=== PATIENT | male | born 1945 | race African-American/Black ===

== ENCOUNTER 2019-01-10 08:44 | Outpatient (RCR) | payer MEDICARE ==
[~2019-01-10] VITALS: Ht 177.8 cm; Wt 78.9 kg
[2019-01-18] MEDS ORDERED: Lidocaine 4% Top Soln 50ml TOPIC ONE (17:15)
== END 2019-01-19 | disposition home or self-care (01) ==
LOC: WCC 08:44
DX: L97.522 Non-pressure chronic ulcer of other part of left foot with fat layer exposed (principal); E11.621 Type 2 diabetes mellitus with foot ulcer; I70.248 Atherosclerosis of native arteries of left leg with ulceration of other part of lower leg; I10 Essential (primary) hypertension; Z85.118 Personal history of other malignant neoplasm of bronchus and lung; F17.210 Nicotine dependence, cigarettes, uncomplicated; Z79.82 Long term (current) use of aspirin; Z88.8 Allergy status to other drugs, medicaments and biological substances
CPT/HCPCS: 11042; 36415; 83036

== ENCOUNTER → 2019-01-12 | Outpatient (CLI) | payer MEDICARE | END | disposition home or self-care (01) | LOC: VAS 08:37 | DX: I73.9 Peripheral vascular disease, unspecified (principal) | CPT/HCPCS: 93925 ==

== ENCOUNTER 2019-01-31 08:48 | Outpatient (RCR) | payer MEDICARE | END 2019-02-19 | disposition home or self-care (01) | LOC: WCC 08:48 | DX: L97.523 Non-pressure chronic ulcer of other part of left foot with necrosis of muscle (principal); L97.522 Non-pressure chronic ulcer of other part of left foot with fat layer exposed; E11.621 Type 2 diabetes mellitus with foot ulcer; I70.248 Atherosclerosis of native arteries of left leg with ulceration of other part of lower leg; Z95.1 Presence of aortocoronary bypass graft; Z85.118 Personal history of other malignant neoplasm of bronchus and lung; I10 Essential (primary) hypertension; Z79.82 Long term (current) use of aspirin; Z79.899 Other long term (current) drug therapy | CPT/HCPCS: 11043 ==

== ENCOUNTER 2019-02-28 08:49 | Outpatient (RCR) | payer MEDICARE ==
[~2019-02-28] VITALS: Ht 177.8 cm; Wt 66.2 kg
[2019-03-09] MEDS ORDERED: Lidocaine 4% Top Soln 50ml TOPIC ONE (08:45)
== END 2019-03-21 | disposition home or self-care (01) ==
LOC: WCC 08:49
DX: L97.523 Non-pressure chronic ulcer of other part of left foot with necrosis of muscle (principal); L97.522 Non-pressure chronic ulcer of other part of left foot with fat layer exposed; E11.621 Type 2 diabetes mellitus with foot ulcer; I70.248 Atherosclerosis of native arteries of left leg with ulceration of other part of lower leg; Z85.118 Personal history of other malignant neoplasm of bronchus and lung; I10 Essential (primary) hypertension; Z79.82 Long term (current) use of aspirin; Z79.899 Other long term (current) drug therapy
CPT/HCPCS: 11042; 11043; 15275; 82962; G0463; Q4133

== ENCOUNTER 2019-03-28 08:38 | Outpatient (RCR) | payer MEDICARE ==
[~2019-03-28] VITALS: Ht 177.8 cm; Wt 78.9 kg
== END 2019-04-21 | disposition home or self-care (01) ==
LOC: WCC 08:38
DX: L97.523 Non-pressure chronic ulcer of other part of left foot with necrosis of muscle (principal); L97.522 Non-pressure chronic ulcer of other part of left foot with fat layer exposed; E11.621 Type 2 diabetes mellitus with foot ulcer; I70.248 Atherosclerosis of native arteries of left leg with ulceration of other part of lower leg; L97.524 Non-pressure chronic ulcer of other part of left foot with necrosis of bone; I10 Essential (primary) hypertension; Z85.118 Personal history of other malignant neoplasm of bronchus and lung; Z79.82 Long term (current) use of aspirin; Z79.899 Other long term (current) drug therapy
CPT/HCPCS: 11043; 11044; 15275; 82962; Q4133

== ENCOUNTER 2019-04-25 09:08 | Outpatient (RCR) | payer MEDICARE ==
[~2019-04-25] VITALS: Ht 177.8 cm; Wt 78.9 kg
== END 2019-05-21 | disposition home or self-care (01) ==
LOC: WCC 09:08
DX: L97.523 Non-pressure chronic ulcer of other part of left foot with necrosis of muscle (principal); L97.522 Non-pressure chronic ulcer of other part of left foot with fat layer exposed; E11.621 Type 2 diabetes mellitus with foot ulcer; I70.248 Atherosclerosis of native arteries of left leg with ulceration of other part of lower leg; L97.524 Non-pressure chronic ulcer of other part of left foot with necrosis of bone; F17.210 Nicotine dependence, cigarettes, uncomplicated; Z85.118 Personal history of other malignant neoplasm of bronchus and lung; I10 Essential (primary) hypertension; E11.9 Type 2 diabetes mellitus without complications; Z79.82 Long term (current) use of aspirin; Z79.899 Other long term (current) drug therapy
CPT/HCPCS: 11043; 29445; 82962; G0463

== ENCOUNTER 2019-06-27 08:48 | Outpatient (RCR) | payer MEDICARE ==
[~2019-06-27] VITALS: Ht 177.8 cm; Wt 78.9 kg
== END 2019-07-22 | disposition home or self-care (01) ==
LOC: WCC 08:48
DX: L97.523 Non-pressure chronic ulcer of other part of left foot with necrosis of muscle (principal); L97.522 Non-pressure chronic ulcer of other part of left foot with fat layer exposed; E11.621 Type 2 diabetes mellitus with foot ulcer; I70.248 Atherosclerosis of native arteries of left leg with ulceration of other part of lower leg; L97.524 Non-pressure chronic ulcer of other part of left foot with necrosis of bone; E11.9 Type 2 diabetes mellitus without complications; I10 Essential (primary) hypertension; Z85.118 Personal history of other malignant neoplasm of bronchus and lung; Z79.899 Other long term (current) drug therapy
CPT/HCPCS: 11043; 11044; 82962; 87070; 87181; 87205

== ENCOUNTER → 2019-07-11 | Outpatient (CLI) | payer MEDICARE ==
--- NOTE | 2019-07-11 15:27 | Diagnostic Imaging Report ---
Indication: 74-year-old male diabetic presenting with open wound lateral side near the fifth toe. Technique: Left foot imaging utilizing multiplanar T1 fast spin-echo, proton and T2 fast spin-echo with fat saturation, and STIR. Comparison: None Findings: There is bone marrow edema (abnormal low T1/high T2 signal) with cortical destruction involving the head and neck of the fifth metatarsal. The destructive process has resulted in medial subluxation of the fifth phalanx. There is also involvement of the proximal fifth phalange which appears abnormal in signal as well. The appearance is in keeping with acute osteomyelitis. Plain film correlation is not available which may give supportive evidence. Soft tissue swelling noted. There is no definite abscess identified. In addition, the tip of the first distal phalange demonstrates apparent disruption of the cortex. There is also abnormal signal mostly characterized by T2 hyperintensity. There may be a small focus of T1 hypointensity at the distal phalangeal tuft. IMPRESSION: Evidence of acute osteomyelitis involving the distal fifth metatarsal and proximal phalange. Plain film correlation is suggested. Apparent focus of cortical disruption involving the first distal phalanx with some T2 hyperintense signal noted. This could be an old area of osteomyelitis. Correlate clinically.
== END | disposition home or self-care (01) ==
LOC: MRI 09:08
DX: M86.172 Other acute osteomyelitis, left ankle and foot (principal)

== ENCOUNTER 2019-07-19 10:03 | Outpatient (CLI) | payer MEDICARE ==
[~2019-07-19] VITALS: Ht 177.8 cm; Wt 70.3 kg
[~2019-07-19 10:03] MED LIST: Heparin1,000 units/500ml Premix(Conc:2 units/ml) INJ PRN; Heparin1,000 units/500ml Premix(Conc:2 units/ml) ONE; Lidocaine 1% Plain 30 ml INJ ONE; Lidocaine 1% Plain 30 ml INJ PRN
--- NOTE | 2019-07-19 10:55 | Pre-Procedure Note/Attestation ---
Pre-Procedure Note/Attestation Complete Prior to Procedure Planned Procedure: not applicable Procedure Narrative: PICC Indications for Procedure Pre-Operative Diagnosis: needs senior living antibiotics Attestation I attest that I discussed the nature of the procedure; its benefits; risks and complications; and alternatives (and the risks and benefits of such alternatives ), prior to the procedure, with the patient (or the patient's legal event marketing representative). I attest that, if there was a reasonable possibility of needing a blood transfusion, the patient (or the patient's legal event marketing representative) was given the [facility] standardized written summary, pursuant to the Ilan Emery Blood Safety Act ([place] Health and Safety Code # 1645, as amended). I attest that I re-evaluated the patient just prior to the surgery and that there has been no change in the patient's H&P, except as documented below: Wilfredo Friend MD Jul 19, 2019 10:55
--- NOTE | 2019-07-19 10:56 | Brief Operative Note ---
Immediate Post Operative Note Operative Note Pre-op Diagnosis: needs exterminator antibiotics Procedure: PICC R arm Post-op Diagnosis: same as pre-op Surgeon: Fareed Bernal Anesthesia: local Specimen: none Complications: none Condition: unstable Fluids: none Implant(s) used?: No Wilfredo Bernal MD Jul 19, 2019 10:56
--- NOTE | 2019-07-19 10:58 | NUR ---
RADIOLOGY NOTE: RIGHT UPPER EXTREMITY PICC LINE PLACEMENT BY DR. MARTHA SARGENT AT 1020 HRS. FA
--- NOTE | 2019-07-19 14:11 | Diagnostic Imaging Report ---
Indications: Needs long-term IV access Technique: Ultrasound confirms patent compressible right basilic vein. Total sterile technique, including sterile probe cover and sterile gel, hat, mask, sterile gown, large sterile drape, and preparation with 2% chlorhexidine utilized. Local anesthesia with 1% lidocaine. Under real-time ultrasound guidance, puncture this is vein using 21-gauge needle, documented and archived, passage 0.018 guidewire under direct fluoroscopy, which was used to determine appropriate catheter length, exchange for 4 Bulgarian peel-away sheath. 4 Bulgarian Bard dual-lumen power PICC cut to 48 cm. It was inserted through the peel-away sheath. Peel-away sheath and guidewire removed. Catheter fixed to the skin. Both catheter ports aspirated and flushed. Patient tolerated procedure well, without immediate complication. Digital radiograph documents satisfactory catheter tip position, at the cavoatrial junction. Total fluoroscopy time 64.2 seconds. Total dose area product [id number] Total number of images: 1 Impression: Successful placement of left arm PICC under sonographic and fluoroscopic guidance, as described above.
== END 2019-07-19 12:03 | disposition home or self-care (01) ==
LOC: RAD 10:03
DX: Z79.899 Other long term (current) drug therapy (principal)
CPT/HCPCS: 36573; 76937; J1644; J2001; 36569

== ENCOUNTER 2019-07-25 08:30 | Outpatient (RCR) | payer MEDICARE ==
--- NOTE | 2019-08-08 12:51 | Infectious Diseases Prog Note ---
Assessment/Plan Problems: (1) Osteomyelitis of foot, left, acute Assessment & Plan: due to pseudomonas aeruginosa and strep agalactia , improving on cefepime which he will receive for 6 weeks, continue local wound care and labs monitor weekly (2) Chronic foot ulcer with necrosis of muscle Assessment & Plan: improving and closing up , with no draining or pus but dry borders , continue loacal wound care and dressings as per wound care clinic (3) Diabetes mellitus Assessment & Plan: recommend tight glycemic control to keep blood glucose between 100-140 (4) PVD (peripheral vascular disease) Assessment & Plan: follow up with vascular surgery Subjective Constitutional: Reports: no symptoms HEENT: Reports: no symptoms Respiratory: Reports: no symptoms Breasts: Reports: no symptoms Cardiovascular: Reports: no symptoms Gastrointestinal/Abdominal: Reports: no symptoms Genitourinary: Reports: no symptoms Neurologic: Reports: no symptoms Psychiatric: Reports: no symptoms Skin: Reports: ulcer Endocrine: Reports: no symptoms Hematologic: Reports: no symptoms Musculoskeletal: Reports: swelling Allergies: Coded Allergies: No Known Allergies (Verified Allergy, Unknown, 01/05/07) Subjective He was feeling good, and has significant improvement in his left foot lateral wound which started closing up with drying out borders , no pain but tingling sensation, mild swelling in the toe Objective General Appearance: WD/WN, no acute distress HEENT: normocephalic, atraumatic, anicteric, mucous membranes moist, PERRL Respiratory/Chest: chest wall non-tender, lungs clear, normal breath sounds, no respiratory distress, no accessory muscle use Cardiovascular: normal peripheral pulses, normal rate, regular rhythm, no gallop/murmur, no JVD Abdomen: normal bowel sounds, soft, non tender, no organomegaly, non distended , no mass, no scars Genitourinary: normal external genitalia Extremities: no cyanosis, no clubbing, no edema Skin: no rash, no lesions, ulcers - left lateral fifth metatarsal wound dry and smaller than before with no draining or discharge 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 Aug 08, 2019 12:51
== END 2019-08-20 | disposition home or self-care (01) ==
LOC: WCC 08:30
DX: L97.523 Non-pressure chronic ulcer of other part of left foot with necrosis of muscle (principal); L97.522 Non-pressure chronic ulcer of other part of left foot with fat layer exposed; E11.621 Type 2 diabetes mellitus with foot ulcer; I70.248 Atherosclerosis of native arteries of left leg with ulceration of other part of lower leg; L97.524 Non-pressure chronic ulcer of other part of left foot with necrosis of bone
CPT/HCPCS: 11043; 11044; 82962

== ENCOUNTER 2019-08-22 08:44 | Outpatient (RCR) | payer MEDICARE | END 2019-09-20 | disposition home or self-care (01) | LOC: WCC 08:44 | DX: L97.523 Non-pressure chronic ulcer of other part of left foot with necrosis of muscle (principal); L97.522 Non-pressure chronic ulcer of other part of left foot with fat layer exposed; L97.524 Non-pressure chronic ulcer of other part of left foot with necrosis of bone; E11.621 Type 2 diabetes mellitus with foot ulcer; I70.248 Atherosclerosis of native arteries of left leg with ulceration of other part of lower leg; F17.210 Nicotine dependence, cigarettes, uncomplicated; E11.9 Type 2 diabetes mellitus without complications; Z85.118 Personal history of other malignant neoplasm of bronchus and lung; I10 Essential (primary) hypertension; Z79.82 Long term (current) use of aspirin | CPT/HCPCS: 11043; G0463 ==